=== PATIENT | male | born 1975 | race Caucasian/White ===

== ENCOUNTER 2018-08-08 06:18 | Day surgery (SDC) | payer MEDICAID, OTHER ==
[~2018-08-08] VITALS: Ht 170.2 cm; Wt 75.9 kg
[2018-08-08] VITALS (12 sets, daily range): BP systolic 100–122; BP diastolic 70–78; PULSE 73–84; RESP 12–20; Ht 170.2 cm; Wt 75.9 kg
[~2018-08-08 06:18] MED LIST: CEFAZOLIN 2 GM in SOD CHLORIDE 0.9% 50 ML IVPB SCH; SOD CHLORIDE 0.9% 1,000 ML IV SCH
[2018-08-08] MEDS ORDERED: SOD CHLORIDE 0.9% 1,000 ML IV ONE (07:30)
[2018-08-08] MEDS ORDERED: CEFAZOLIN 2 GM/50 ML (PMX) 50 ML IVPB ONE (07:30)
[2018-08-08] MEDS ORDERED: METF850T13 PO (07:45)
[2018-08-08] MEDS ORDERED: PIOG15TA12 PO (07:46)
[2018-08-08] MEDS ORDERED: GLIP10TA14 PO (07:46)
[2018-08-08] MEDS ORDERED: CHRO200T2 PO (07:47)
[2018-08-08] MEDS ORDERED: ALPH300C PO (07:48)
[2018-08-08] MEDS ORDERED: CYAN500T46 PO (07:48)
--- NOTE | 2018-08-08 09:11 | PREAC ---
Date/Time of Note Date/Time of Note DATE: 08/08/18 TIME: 09:10 Anesthesia Eval and Record Evaluation Time Pre-Procedure Interview DATE: 08/08/18 TIME: 09:10 Age 42 Sex male NPO: 8 hrs Preoperative diagnosis BACK MASS Planned procedure EXCISION BACK MASS Past Medical History Past Medical History: Includes Endo: Diabetes Surgery & Anesthesia Issues No known issue Meds Anticoagulation: No Beta Ilia within 24 hr: No Reason Beta Ilia not given: Pt. not on B-Ilia Reported Medications Thioctic Acid (Alpha Lipoic Acid) 300 Mg Capsule, 600 MG PO DAILY, CAP 08/08/18 Cyanocobalamin* (Vitamin B12*) 500 Mcg Tab, 1000 MCG PO DAILY, TAB 08/08/18 Chromium Picolinate (Chromium Picolinate) 200 Mcg Tablet, 200 MCG PO DAILY, TAB 08/08/18 Pioglitazone Hcl* (Actos*) 15 Mg Tablet, 15 MG PO DAILY, #30 TAB 08/08/18 Glipizide* (Glipizide*) 10 Mg Tablet, 10 MG PO BID, TAB 08/08/18 Metformin Hcl* (Metformin Hcl*) 850 Mg Tablet, 850 MG PO WITH BREAKFAST DINNE, #60 TAB 08/08/18 Current Medications Sodium Chloride 1,000 ml @ 75 mls/hr [id number] ONCE IV ; Start 08/08/18 at 07:30; Stop 08/08/18 at 20:49 Meds reviewed: Yes Allergies Coded Allergies: No Known Allergy (Unverified , 08/08/18) Allergies Reviewed: Yes Labs/Studies Labs Reviewed: Reviewed by anesthesiologist Result Diagram: 08/08/18 0750 08/08/18 0750 Laboratory Tests 08/08/18 07:50 test: N/A Pre-procedure Exam Last vitals Vital Signs Date Temp Pulse Resp B/P (MAP) Pulse Ox O2 O2 Flow FiO2 Time Delivery Rate 08/08/18 97.3 83 16 122/77 99 Room Air 08:03 (92) Airway: Adequate mouth opening, Adequate thyromental dist Mallampati: Mallampati II Teeth: Normal Lung: Normal Heart: Normal ASA Physical Status ASA physical status: 2 Emergency: None Planned Anesthetic General/MAC: MAC Planned Pain Management Parenteral pain med Pre-operative Attestations Prior to commencing anesthesia and surgery, the patient was re-evaluated, there was verification of: *The patient's identity *The results of appropriate recent lab work and preoperative vital signs *The above evaluation not changing prior to induction *Anesthetic plan, risk benefits, alternative and complications discussed with patient/family; questions answered; patient/family understands, accepts and wishes to proceed. Jin Antonio M.D. Aug 08, 2018 09:11
[2018-08-08] MEDS ORDERED: LIDOCAINE 2% (MDV) 20 ML INJ ONE ×2 (09:12→09:14)
[2018-08-08] MEDS ORDERED: BUPIVACAINE 0.5% (SDV) 30 ML INJ ONE (09:12)
[2018-08-08] MEDS ORDERED: FENTAnyl 50 MCG/ML VIAL ONE (09:22)
[2018-08-08] MEDS ORDERED: KETOROLAC 30 MG INJ ONE (09:22)
[2018-08-08] MEDS ORDERED: PROPOFOL 20 ML ONE (09:22)
[2018-08-08] MEDS ORDERED: MIDAZOLAM 1 MG/ML 2 ML INJ ONE (09:22)
[2018-08-08] MEDS ORDERED: IPRATROPIUM (NEB) 0.5 MG/2.5 ML AMP HHN PRN (09:30)
[2018-08-08] MEDS ORDERED: MIDAZOLAM 1 MG/ML 2 ML INJ IV PRN (09:30)
[2018-08-08] MEDS ORDERED: MEPERIDINE 25 MG INJ IV PRN (09:30)
[2018-08-08] MEDS ORDERED: HYDROmorphONE 1 MG/5 ML IV SYRINGE IV PRN ×3 (09:30)
[2018-08-08] MEDS ORDERED: OXYCODONE/ACETAMINOPHEN (5/325) TAB PO PRN ×2 (09:30)
[2018-08-08] MEDS ORDERED: EPHEDrine SULFATE 50 MG/5 ML SYG IV PRN (09:30)
[2018-08-08] MEDS ORDERED: DIPHENHYDRAMINE 50 MG INJ IV PRN (09:30)
[2018-08-08] MEDS ORDERED: FENTAnyl 50 MCG/ML VIAL IV PRN ×3 (09:30)
[2018-08-08] MEDS ORDERED: LABETALOL HCL 20MG INJ IV PRN (09:30)
[2018-08-08] MEDS ORDERED: ALBUTEROL 0.083% (NEB) 2.5 MG/3 ML AMP HHN PRN (09:30)
[2018-08-08] MEDS ORDERED: ONDANSETRON 4 MG INJ IV PRN (09:30)
[2018-08-08] MEDS ORDERED: hydrALAzine 20 MG INJ IV PRN (09:30)
[2018-08-08] MEDS ORDERED: TRIMETHOBENZAMIDE 100 MG/ML VIAL IM PRN (09:30)
--- NOTE | 2018-08-08 09:55 | OPR ---
Date/Time of Note Date/Time of Note DATE: 08/08/18 TIME: 09:52 Operative Report Procedure Date: Aug 08, 2018 Preoperative Diagnosis back mass Postoperative Diagnosis same Operation/Procedure Performed 1. excision of back mass 5 cm mass 5 cm incision 2. localized adjacent tissue transfer with the use of skin flaps 10 sq cm defect of the back 3. therapeutic injection of subcutaneous local anesthesia Surgeon see signature line [facility] History Professor none Anesthesia Type: MAC Estimated Blood Loss: 0 - 10 ml's Transfusion none Specimen back mass Grafts/Implants none Complications none Pt Condition Post Procedure: stable Indications This is a 42-year-old male with a back mass that is painful. He requires surgical excision of the back mass. Risks alternatives benefits and percent were discussed the patient. Patient expressed understanding and consents to the operation. Procedure Description Patient taken to the OR and prepped and draped in usual sterile fashion. Surgical time was performed. IV antibiotics were given. Subcutaneous therapeutic local anesthesia was injected around the mass incision site. Once anesthetic effect was effectuated 15 blade was used to make an elliptical incision around the mass. Dissection with cautery was carried onto the mass and the mass was circumferentially excised. Good hemostasis status. Due to tissue defect localized adjacent tissue transfer with these of skin flaps were performed. Multilayer closure with interrupted 2-0 Vicryl and skin rachell. Dry dressings were applied. Cm OLIVIER Aug 08, 2018 09:55
[2018-08-08] MEDS ORDERED: HYDROCODONE/APAP (5/325) TAB PO ONE (10:00)
--- NOTE | 2018-08-08 10:07 | PAC ---
Date/Time of Note Date/Time of Note DATE: 08/08/18 TIME: 10:07 Post-Anesthesia Notes Post-Anesthesia Note Last documented vital signs Vital Signs Date Temp Pulse Resp B/P (MAP) Pulse Ox O2 O2 Flow FiO2 Time Delivery Rate 08/08/18 97.3 83 16 122/77 99 Room Air 10:03 (92) Activity: WNL Respiratory function: WNL Cardiovascular function: WNL Mental status: Baseline Pain reasonably controlled: Yes Hydration appropriate: Yes Nausea/Vomiting absent: Yes Jin Antonio M.D. Aug 08, 2018 10:07
== END 2018-08-08 12:15 | disposition home or self-care (01) ==
LOC: SDS 06:18
PROVIDERS: ATTEND Surgery
DX: L72.0 Epidermal cyst (principal); L90.5 Scar conditions and fibrosis of skin; E11.9 Type 2 diabetes mellitus without complications
CPT/HCPCS: 14000; 80053; 82962; 85025; 85610; 85730; 88307; J0690; J1885; J2250; J3010; Z7512; Z7610

== ENCOUNTER 2018-08-09 19:10 | Emergency (ER) | payer OTHER ==
[~2018-08-09] VITALS: Ht 170.2 cm; Wt 76.6 kg
[~2018-08-09 19:10] MED LIST changes: +ALPH300C PO; -CEFAZOLIN 2 GM in SOD CHLORIDE 0.9% 50 ML IVPB SCH; +CHRO200T2 PO; +CYAN500T46 PO; +GLIP10TA14 PO; +METF850T13 PO; +PIOG15TA12 PO; -SOD CHLORIDE 0.9% 1,000 ML IV SCH
[2018-08-09 19:57] VITALS: BP 140/89; PULSE 73; RESP 16; Ht 170.2 cm; Wt 76.6 kg
--- NOTE | 2018-08-09 21:50 | ERD ---
ER Documentation Chief Complaint Chief Complaint S/P SURGERY YESTERDAY. ABD PAD SHOWS BLEEDING HPI 42-year-old male, presents to the emergency department, complaining of wound bleeding after surgical excision of a mass on his back yesterday. The patient denies fevers, no chills, no pain. ROS All systems reviewed and are negative except as per history of present illness. Medications Home Meds Reported Medications Thioctic Acid (Alpha Lipoic Acid) 300 Mg Capsule, 600 MG PO DAILY, CAP 08/08/18 Cyanocobalamin* (Vitamin B12*) 500 Mcg Tab, 1000 MCG PO DAILY, TAB 08/08/18 Chromium Picolinate (Chromium Picolinate) 200 Mcg Tablet, 200 MCG PO DAILY, TAB 08/08/18 Pioglitazone Hcl* (Actos*) 15 Mg Tablet, 15 MG PO DAILY, #30 TAB 08/08/18 Glipizide* (Glipizide*) 10 Mg Tablet, 10 MG PO BID, TAB 08/08/18 Metformin Hcl* (Metformin Hcl*) 850 Mg Tablet, 850 MG PO WITH BREAKFAST DINNE, #60 TAB 08/08/18 Allergies Allergies: Coded Allergies: No Known Allergy (Unverified , 08/09/18) PMhx/Soc History of Surgery: Yes (CYST REMOVAL AT THE BACK) Anesthesia Reaction: No Hx Neurological Disorder: No Hx Respiratory Disorders: No Hx Cardiac Disorders: No Hx Psychiatric Problems: No Hx Miscellaneous Medical Probl: No Hx Alcohol Use: No Hx Substance Use: No Hx Tobacco Use: Yes Smoking Status: Current every day smoker Physical Exam Vitals Vital Signs Date Temp Pulse Resp B/P (MAP) Pulse Ox O2 O2 Flow FiO2 Time Delivery Rate 08/09/18 97.5 73 16 140/89 98 19:57 (106) Physical Exam Const: No acute distress Head: Atraumatic Eyes: Normal Conjunctiva ENT: Normal External Ears, Nose and Mouth. Neck: Full range of motion. No meningismus. Resp: Clear to auscultation bilaterally Cardio: Regular rate and rhythm, no murmurs Abd: Soft, non tender, non distended. Normal bowel sounds Skin: No petechiae or rashes. 7 cm linear surgical incision located in the upper back with rachell in place, clean, dry and intact. Back: No midline or flank tenderness Ext: No cyanosis, or edema Neur: Awake and alert Psych: Normal Mood and Affect Procedures/MDM Status post surgical excision of a mass in the upper back 1 day ago. Adequate pain control, no fever, no chills, good compliance with medications no side effects. The patient was evaluated for infection and neurovascular compromise. The wound was clean and irrigated with normal saline and dressing applied. Patient is stable, with adequate healing process, okay to discharge home, medication adherence reinforced. some side effects of prescribed medications (headache, rash, nausea, vomiting, diarrhea, drowsiness, habituation, bleeding, hypertension, interactions with other medications) were reviewed. The patient was instructed to follow up with the primary care provider in the next 48h. If symptoms persist, worsen or new symptoms develop, then patient should return to the ED immediately. Instructions explained and given directly by me to the patient with acknowledgment and demonstrated understanding. Disclaimer: Inadvertent spelling and grammatical errors are likely due to EHR/dictation software use and do not reflect on the overall quality of patient care. Also, please note that the electronic time recorded on this note does not necessarily reflect the actual time of the patient encounter. Departure Diagnosis: Primary Impression: Encounter for wound re-check Condition: Stable Additional Instructions: Thank you very much for allowing us to participate in your care. Your health and safety is our top priority at [facility]. Call your primary care doctor TOMORROW for an appointment during the next 2-4 days and bring all the information and medications prescribed. Have prescriptions filled and follow precisely the directions on the label. If the symptoms get worse and your provider is unavailable, return to the Emergency Department immediately. KENTON SINGH MD Aug 09, 2018 21:50
== END 2018-08-09 22:10 | disposition home or self-care (01) ==
LOC: FTE 19:10
DX: Z48.01 Encounter for change or removal of surgical wound dressing (principal)
CPT/HCPCS: 99281